=== PATIENT | female | born 1945 | race Caucasian/White ===

== ENCOUNTER 2018-08-01 11:15 | Inpatient (IN) | payer OTHER ==
[2018-07-29 10:52] LABS: PLATELET COUNT 195 10^3/uL (150-400)
[2018-08-01] MEDS ORDERED: BUPIVACAINE 0.5% 30 ML SDV ONE (11:21)
[2018-08-01] MEDS ORDERED: SURGIFLO MATRIX KIT WITH THROMBIN 8 ML TP ONE (11:21)
[2018-08-01] MEDS ORDERED: BACITRACIN 50,000 UNITS/10 ML SYR IRR ONE (11:21)
[2018-08-01] MEDS ORDERED: VANCOMYCIN 1 GM VIAL ONE (11:24)
[2018-08-01] MEDS ORDERED: TRANEXAMIC ACID 1,000 MG in NS 100 ML IV ONE (11:38)
[2018-08-01] MEDS ORDERED: ceFAZolin 2 GM/DEXTROSE 100 ML IV ONE (11:38)
--- NOTE | 2018-08-01 11:38 | PDHPUP ---
History & Physical Update H&P update statement: This history and physical update is based on an assessment of the patient which was completed after admission or registration (within 24 hours), but prior to the surgery/procedure. H&P update: H&P reviewed & patient examined, no change in patient's condition since H&P completed
[2018-08-01] MEDS ORDERED: ALBUTEROL 3 ML DEYVIAL IH PRN (11:42)
[2018-08-01] MEDS ORDERED: ONDANSETRON 4 MG/2 ML VIAL IVP PRN ×2 (11:42→15:16)
[2018-08-01] MEDS ORDERED: oxyCODONE IR 5 MG TAB PO PRN (11:42)
[2018-08-01] MEDS ORDERED: MIDAZOLAM 2 MG/2 ML VIAL IVP ONE (11:42)
[2018-08-01] MEDS ORDERED: DEXAMETHASONE 4 MG/ML VIAL IVP PRN (11:42)
[2018-08-01] MEDS ORDERED: LR 1,000 ML IV ONE (11:42)
[2018-08-01] MEDS ORDERED: fentaNYL 100 MCG/2 ML INJ IVP PRN (11:42)
[2018-08-01] MEDS ORDERED: NALOXONE HCL 0.4 MG/ML INJ IVP PRN (11:42)
[2018-08-01] MEDS ORDERED: PROPOFOL/EMULSION 500 MG/50 ML BOTTLE IV ONE ×4 (12:00→14:22)
[2018-08-01] MEDS ORDERED: REMIFENTANIL HCL 1 MG VIAL ONE ×4 (12:00→13:59)
[2018-08-01] MEDS ORDERED: SUCCINYLCHOLINE CHLORIDE 200 MG/10 ML SYR IVP ONE (12:05)
[2018-08-01] MEDS ORDERED: ONDANSETRON 4 MG/2 ML VIAL ONE (12:34)
[2018-08-01] MEDS ORDERED: DEXAMETHASONE 4 MG/ML VIAL ONE ×2 (12:34)
--- NOTE | 2018-08-01 12:36 | PDANEPAE ---
ANE History of Present Illness L4-5 XLIF, Posterior Fusion ANE Past Medical History - Cardiovascular History Hx Hypertension: Yes Hx Arrhythmias: No Hx Chest Pain: No Hx Coronary Artery / Peripheral Vascular Disease: No Hx CHF / Valvular Disease: Yes Hx Palpitations: No Cardiovascular History Comment: ENRIKE MURMUR. VALVE LEAKAGE VIA ECHO 2013 [facility] [place]. Pt states it seems to come and go, sometimes it cannot be heard". NO CP - Pulmonary History Hx COPD: No Hx Asthma/Reactive Airway Disease: No Hx Recent Upper Respiratory Infection: No Hx Oxygen in Use at Home: No Hx Sleep Apnea: No Sleep Apnea Screening Result - Last Documented: Negative Pulmonary History Comment: SL SOB W STAIRS. CAN ANGEL MET 4 ACT - Neurologic History Hx Cerebrovascular Accident: No Hx Seizures: No Hx Dementia: No Neurologic History Comment: spinal stenosis. sciatic nerve pain to LLE - Endocrine History Hx Diabetes: No - Renal History Hx Renal Disorders: No - Liver History Hx Hepatic Disorders: No - Neurological & Psychiatric Hx Hx Neurological and Psychiatric Disorders: No - Cancer History Hx Cancer: Yes Cancer History Comment: R BREAST CA DX '- TX RADIATION - Congenital Disorder History Hx Congenital Disorders: No - GI History Hx Gastrointestinal Disorders: No - Other Health History Other Health History: laser eye surgery - Chronic Pain History Chronic Pain: No - Surgical History Prior Surgeries: Left total ankle, 06/2014. R ANKLE REPL '04. X 2 CORRECTIVE SURG TO R ANKLE. R LUMPECTOMY W RADIATION ANE Review of Systems Review of Systems: - Exercise capacity METS (RN): 4 METS ANE Patient History - Allergies Allergies/Adverse Reactions: No Known Allergies Allergy (Verified 07/24/18 16:35) - Home Medications Home Medications: Amoxicillin/Clavulanate Pot [Augmentin 875 MG TAB (*)] 875 mg PO BID 07/24/18 [ Last Taken 08/01/18] Lidocaine [Lidoderm] 1 each TP HS 07/24/18 [Last Taken 07/31/18] Lisinopril [Zestril 10 mg (*)] 10 mg PO DAILY 07/24/18 [Last Taken 07/31/18] Meloxicam 15 mg PO DAILY 07/24/18 [Last Taken 07/24/18] - NPO status NPO Since - Liquids (Date): 08/01/18 NPO Since - Liquids (Time): 08:00 NPO Since - Solids (Date): 08/01/18 NPO Since - Solids (Time): 02:00 - Smoking Hx Smoking Status: Never smoked - Family Anes Hx Family Hx Anesthesia Complications: NONE ANE Labs/Vital Signs - Labs Result Diagrams: 07/29/18 Unknown - Vital Signs Blood Pressure: 198/100 Heart Rate: 74 Respiratory Rate: 14 O2 Sat (%): 89 Height: 165.1 cm Weight: 88.451 kg ANE Physical Exam - Airway Neck exam: FROM Mallampati Score: Class 2 Mouth exam: normal dental/mouth exam - Pulmonary Pulmonary: clear to auscultation - Cardiovascular Cardiovascular: regular rate and rhythym - ASA Status ASA Status: III ANE Anesthesia Plan Anesthesia Plan: general endotracheal anesthesia Total IV Anesthesia: Yes
[2018-08-01] MEDS ORDERED: LABETALOL HCL 5 MG/ML 20 ML MDV ONE (12:57)
[2018-08-01] MEDS ORDERED: HYDROmorphONE/DILAUDID 2 MG/ML INJ ONE ×2 (13:07→15:23)
[2018-08-01] MEDS ORDERED: ONDANSETRON DISINTEGRATING 4 MG TAB PO PRN (15:16)
[2018-08-01] MEDS ORDERED: BISACODYL 10 MG SUPP PR PRN (15:16)
[2018-08-01] MEDS ORDERED: POLYETHYLENE GLYCOL 3350 17 GM PKT PO PRN (15:16)
[2018-08-01] MEDS ORDERED: MAGNESIUM HYDROXIDE 30 ML UDCUP PO PRN (15:16)
[2018-08-01] MEDS ORDERED: diphenhydrAMINE 25 MG CAP PO PRN (15:16)
[2018-08-01] MEDS ORDERED: LACTULOSE 20 GM/30 ML UDCUP PO PRN (15:16)
--- NOTE | 2018-08-01 15:16 | POSTOPPROG ---
Post Op Note Date of Operation: 08/01/18 Surgeon: Jr Stanley Sports Medicine Trainer: Isis Diaz PA-C Anesthesiologist: Dr. Hyatt Anesthesia: GET(General Endotracheal) Pre-op Diagnosis: low back pain, lumbar degenerative disc Post-op Diagnosis: low back pain, lumbar degenerative disc Indication: low back pain Procedure: L4-5 XLIF Inf/Abcess present in the surg proc area at time of surgery?: No EBL: 50-100 Complications: none
--- NOTE | 2018-08-01 15:24 | POSTANESTH ---
Post Anesthetic Evaluation Cardiovascular Status: Normal, Stable Respiratory Status: Normal, Stable Level of Consciousness/Mental Status: Can Participate in Eval, Alert and Oriented Pain Control: Adequate, Prn Tx Ordered Nausea/Vomiting Control: Adequate, Prn Tx Ordered Complications Possibly Related to Anesthesia: None Noted
[2018-08-01] MEDS: HYDROmorphONE/DILAUDID 2 MG/ML INJ IVP PRN ×2 (15:25→15:41)
[2018-08-01] MEDS ORDERED: DIAZEPAM 5 MG/ML 1 ML SYR IVP PRN (15:31)
[2018-08-01] MEDS ORDERED: DIAZEPAM 5 MG/ML 1 ML SYR ONE (15:32)
[2018-08-01] MEDS ORDERED: fentaNYL 100 MCG/2 ML INJ ONE (15:32)
--- NOTE | 2018-08-01 15:34 | SOAPPROG ---
SOAP Progress Note Assessment/Plan: Assessment/Plan: 73y/o female s/p L4-5 XLIF - orders as written - TEDs/SCDs, early ambulation - post-op xrays in am - PT/OT - call with issues or concerns 08/01/18 15:32 Subjective: Having moderate low back pain. No leg pain. Objective: Vital Signs Temp Pulse Resp BP Pulse Ox 36.9 C 74 14 198/100 H 89 L 08/01/18 11:46 08/01/18 12:36 08/01/18 12:36 08/01/18 12:36 08/01/18 12:36 Laboratory Results 07/29/18 Unknown NAD, mild distress due to pain EOMi, face symmetric LE 5/5=B in quads, hamstring, dorsiflexion, plantarflexion, EHL sensation intact and symmetric in BLE incision clean, dressed ICD10 Worksheet Patient Problems: Problems Problem Status Onset Primary localized osteoarthritis of ankle Acute
--- NOTE | 2018-08-01 16:42 | SUROPNOTE ---
[facility] Operative Report - Surgery Date: 08/01/18 Pre-operative Diagnoses: Degenerative disc disease and spondylosis L4/5 Degenerative spondylolisthesis L4 Bilateral pars insufficiency fractures Lumbar spinal stenosis Post-operative Diagnosis: Same Procedures: Left L4/5 Minimally invasive extreme lateral interbody fusion (XLIF) L4/5 Anterior column plate and screw fixation L4/5 Minimally Invasive Posterior Lumbar Fusion with Instrumentation L4/5 facet removal and Minimally Invasive Transforaminal Decompression Reduction of bilateral L4 pars insufficiency fractures Structural use of allograft Use of intra-operative fluoroscopy Use of intra-operative neuromonitoring, including EMG and SSEP modalities Use of a surgical microscope Surgeon: Jr Stanley MD Assist: Isis Diaz PA-C Anesthesia: General endotracheal anesthesia Findings: As expected spondylolisthesis, spinal stenosis, facet hypertrophy Estimated Blood Loss: 100mL Drains: Hemovac sewn to skin Specimens: None Complications: None Condition: Transferred to PACU in stable condition Implants: NuVasive XLIF Cage: 10mm x 15deg x 22mm x 50mm Anterior Column Plate: modulus incorporated plate Anterior Screws: 50mm Posterior Pedicle Screws: 45mm x 6.5mm Scott: 40mm Ti Allograft: 5mL allograft used structurally in the disc space and interbody cage Indications: This patient was seen in my office and diagnosed with degenerative spondylolisthesis and spinal stenosis. I have explained all options of treatment for the patient, and the patient has elected to proceed with operative management. I have explained all risks, benefits, and alternatives of the proposed procedure. The risks that we have discussed include , blindness, nerve damage, infection, dural tear, failure of surgery to alleviate pre-operative symptoms, nonunion, and possible need for further operation. I explained separately the risks of allograft, including infection and disease transfer. I specifically discussed the additional risks of XLIF, including but not limited to vascular damage, femoral nerve radiculopathy, or weakness. In addition to the aforementioned procedure, I discussed with the patient that other procedures may be indicated during the course of surgery that would be considered in the patients best interest. The patient expressed understanding of this and agreed to move forward with operative management. Pre-operative: The proposed incision sites were marked in the pre-operative holding area by me. The patient was then taken to the operating room in stable condition. Following smooth induction of general anesthesia, the patient was positioned in a lateral decubitus position on a flat OR table with all down surfaces well- padded. The patient was then prepped and draped in the usual sterile fashion. Pre-operative antibiotics were administered within one hour of the incision. A surgical timeout was performed, and all parties involved in the procedure were in agreement on the correct patient, location, and procedure to be performed. Level localization and spinal pause: After the table was broken to allow for appropriate access to the disk space, x- rays were taken to make sure that the operative disc space was properly marked out. Once the disk space was marked out from a lateral approach, a local anesthetic with epinephrine was injected into~the area and approximately a 4cm incision was then made over the side overlying the disk directly lateral to it. Subdermal fat was then explored and moved aside. The external and internal oblique muscles were then dissected bluntly using finger and Metzenbaum scissors. The retroperitoneal space was then entered using manual palpation. The transverse process and the~disk space of the operative level was palpated. A wire was then placed into the operative disc space and confirmed on both AP and lateral radiographs. Serial dilators were~then placed in position here to allow for an XLIF retractor. The XLIF retractor was then placed over the operative disk space. This was again confirmed~by AP and lateral radiographs and then a nerve detection system was used to ensure that the lumbar plexus was not violated. Placement of XLIF interbody cage, reduction of spondylolisthesis and bilateral pars insufficiency fractures: ~A posterior bridget was then placed into the posterior third of the vertebral body and retracted forward or~anteriorly. An ALL protector was then placed anteriorly over the front of the anterior vertebral bodies. The disk space was then incised and the annulus fibrosis was removed. Serial disk preparation tools including a Mclaughlin curette, box cutters, #5 Kerrison and pituitary rongeur was used to prep the disk space. This was also flushed several times to ensure that the disk space~was empty of any remaining debris. At this time, a trial was then placed and~the appropriately sized cage was selected. The cage was~ then packed with 5 mL of allograft bone and this was gently malleted in place~ and again confirmed by both AP and lateral radiographs. The casing man was then removed. Attention was then turned towards the plate placement. At this~time, an anterior column plate was then placed laterally over the cage itself. Screw holes were then drilled into both the cephalad and caudal vertebrae levels. Appropriately-sized screws were then placed into both vertebrae with just enough purchase for a bicortical bite within the vertebral body. Again, radiographs confirmed both placement of the graft and the screws. The spondylolisthesis and pars insufficiency fractures were noted to be reduced. At this time, all monitoring was noted to be stable. Closure of lateral incision: Attention was then turned towards closure. 2-0 Monocryl sutures were then used to repair the subcutaneous tissues and a 4-0 Monocryl was used to repair the skin. Glue was then used over the top of this and this surgical site was then~ sealed completely. ~ Patient transfer: The patient was then carefully transferred to a Davonte table, and positioned prone with all down surfaces well-padded. The patient was then prepped and draped in the usual sterile fashion. A second surgical timeout was performed, and all parties involved in the procedure were in agreement on the correct patient, location, and procedure to be performed. Pedicle screw placement: All pedicle screws were placed in a percutaneous fashion. Using biplanar fluoroscopy, a Jamshidi needle was gently malleted into place at the appropriate pedicle screw starting position at the lateral border of the facet on the AP view and mid-point of the pedicle on lateral view. The needle was advanced just past the pedicle into the vertebral body. At this point, a neurostimulating probe was attached to the end of the needle and the potentials were noted to be above 20 milliamps. The central trocar was then removed, and a blunt K-wire was passed into the cannulated pedicle. The Jamshidi was then removed completely, with the K-wire anchored in the vertebral body. A tap was then used up to a size that was 1mm below the final screw size based on pre- operative templating. An appropriately-sized screw was placed at each level and confirmed fluoroscopically. Two headless shanks were placed, which would allow for facile visualization of bony landmarks and safe decompression. All screws were then stimulated. Each screw was stimulated and potentials were all above 20 milliAmps. Posterior~approach (cephalad level nerve root to be fused): A pointed dilator was introduced onto the lateral pars of the caudal level to be fused. Serial dilators were used and the XLIF retractor system was then docked. Positioning was confirmed parallel to the disc space to be fused by lateral fluoroscopy. Transforaminal decompression: Using a transforaminal decompression technique and taking care to avoid breach into the previously created pedicle tract, the inferior facet of the cephalad level to be fused, and the superior facet of the caudal level to be fused were removed using a high speed salty and Kerrison rongeurs. Special care was taken to not use the high speed salty in proximity to the underlying nerve root. Using a [place] #4, the nerve was protected cephalad and Kambins triangle was identified and decompressed (bordered by the nerve root cephalad and the thecal sac medially). The facet was removed entirely to allow for complete decompression at the L4/5 level. ~ Scott and set screw placement: At this time, associated tulip heads were placed into the screws with associated reduction towers. Using a percutaneous scott passer, an appropriately- sized scott was then placed into the pedicle screw heads with ample scott extending from either end. To ensure that the rods were appropriately positioned, three checks were performed: the rods were visually inspected, the insertion handle was torqued and both towers were visualized to move, and a lateral radiograph was taken to ensure an appropriate length to the rods. At this point, a lateral radiograph was taken and reduction of the vertebral insufficiency fractures was noted. Of note, there were no changes in the SSEP and EMG monitoring during this maneuver. Set screws were then placed into the cephalad pedicle screws over the rods, and all set screws were tensioned using a torque-limited screwdriver. Closure: The surgical field was then copiously irrigated with sterile saline. Vancomycin powder was then applied to the surgical field. A small drain was placed deep to the fascia and brought out of the skin superior and laterally. The drain was then sewn to skin. #1 vicryl suture were used to repair the fascia in an interrupted fashion. Then 2-0 interrupted sutures were used to repair the dermal layer, and a separate 3-0 monofilament suture was used to repair the subcutaneous layer in a running fashion. All sutures used were absorbable. Topical adhesive was then applied to the skin and allowed to dry. A sterile island dressing was applied over the surgical incision. A surgical count was performed before initiation of closure and following the procedure, and all were correct. I was present for the entire procedure. Surgical microscope use: A surgical microscope was utilized throughout the decompressive portion of this case. This was deemed necessary for safe and accurate surgical decompression of affected nerve roots. Neuromonitoring: SSEP and EMG were used throughout the case from incision until the beginning of closure. There were no significant changes throughout the case, and SSEP signals were at their pre-surgical baseline levels before surgical closure was initiated. medical library assistant: A certified surgical technician was used throughout the case, and deemed necessary for safe neural retraction, hemostasis, and suction. Recovery: The patient was extubated uneventfully in the operating room. The patient was taken to the recovery room in stable condition. Sequential compression devices for VTE prophylaxis were applied to the patients lower extremities, and were ordered to be used while the patient was non-ambulatory. Chemical VTE prophylaxis was considered to be contraindicated for this patient because of the risk of bleeding near the epidural space. Jr Stanley MD
--- NOTE | 2018-08-01 16:55 | PDMN ---
Medical Necessity Medical necessity: [facility] IP only surgery; cpt [id number] Lumbar Fusion (L4/5 XLIF)
[2018-08-01] MEDS: SENNOSIDES/DOCUSATE SODIUM TAB PO SCH (20:11)
[2018-08-01] MEDS: AMOXICILLIN/CLAVULANATE POT 875/125 MG TAB PO SCH (20:11)
[2018-08-01] MEDS: LIDOCAINE 4%/MENTHOL 1% PATCH TD SCH (20:11)
[2018-08-01] MEDS: ceFAZolin 2 GM/DEXTROSE 100 ML IV SCH (20:13)
[2018-08-01] MEDS: oxyCODONE IR 5 MG TAB PO PRN (21:27)
[2018-08-01] MEDS: ACETAMINOPHEN 325 MG TAB PO SCH (21:27)
[2018-08-02] MEDS: METHOCARBAMOL 750 MG TAB PO PRN ×2 (00:46→11:35)
[2018-08-02] MEDS: oxyCODONE IR 5 MG TAB PO PRN ×2 (02:33→20:15)
[2018-08-02] MEDS: ceFAZolin 2 GM/DEXTROSE 100 ML IV SCH (03:54)
[2018-08-02] MEDS: ACETAMINOPHEN 325 MG TAB PO SCH ×2 (05:51→14:06)
[2018-08-02] MEDS: LISINOPRIL 10 MG TAB PO SCH (08:34)
--- NOTE | 2018-08-02 09:17 | GDS ---
The patient underwent an uneventful left L4-5 XLIF and right L4-5 MIS PSF on 08/01/2018. There were no complications. Following the operation, she did well. Her pain was well controlled and she noted relief of her pre-surgical stenosis symptoms. She had no drains. The Thurman was discontinued immedi ately after surgery. She progressed well with physical therapy and her pain was well controlled on a n oral regimen. The patient is not to bend, lift, or twist about the spine and is to wear the brace any time she is u p and around walking. She can remove the dressings the day after leaving the hospital and is allowed to shower without the dressings. She will see me in the office in 2 weeks time for followup. She h as my cell phone if any further questions arise, and she has a pre-surgical packet which answers any remaining questions. /[id number]/MODL
--- NOTE | 2018-08-02 09:17 | GPROG ---
I saw and evaluated the patient on my morning rounds today. Overall, she offers no unusual complaints. She states that the leg pain she was having for some time is completely gone. She has had a couple of narcotic pain medications overnight, but offers no unusual complaints. Thurman catheter has been removed and the patient since has urinated. PHYSICAL EXAM: Her dressings are clean, dry, and intact. There is no drain. She has no sensory, motor or vascular deficits. IMPRESSION: Postoperative day 1 status post left L4/5 XLIF, right L4/L5 MIS posterior spinal fusion. From my perspective, she is going to go home whenever she is safe with Physical Therapy. Her pain is controlled on an oral regimen. /[id number]/MODL MTDD
[2018-08-02] MEDS: AMOXICILLIN/CLAVULANATE POT 875/125 MG TAB PO SCH ×2 (10:10→20:13)
[2018-08-02] MEDS: PATCH REMOVAL 1 EA PATCH TD SCH (10:11)
[2018-08-02] MEDS: SENNOSIDES/DOCUSATE SODIUM TAB PO SCH ×2 (10:11→20:13)
--- NOTE | 2018-08-02 11:15 | ASMTLACE ---
LACE Length of stay for Answers: 2 days current admission Acuity / Level of Answers: Yes Care: Did the patient have an inpatient admission? Comorbidities - select Answers: Congestive heart failure all that apply Other Notes: HTN # of Emergency department Answers: 0 visits in the last 6 months Score: 8 Date Signed: 08/02/2018 11:14 AM Electronically Signed By:KUSHAL Flores
--- NOTE | 2018-08-02 11:16 | ASMTCMCOM ---
CM Note CM Note Notes: Pt had planned surgery for stenosis. PT rec home. Pt resides with spouse. Anticipate pt will d/c when medically stable with family support, no CM d/c needs identified. CM available for changes/needs. Date Signed: 08/02/2018 11:15 AM Electronically Signed By:KUSHAL Flores
[2018-08-02] MEDS: LIDOCAINE 4%/MENTHOL 1% PATCH TD SCH (20:16)
[2018-08-03] MEDS: ACETAMINOPHEN 325 MG TAB PO SCH ×2 (00:30→05:35)
[2018-08-03] MEDS: oxyCODONE IR 5 MG TAB PO PRN ×2 (05:35→10:28)
[2018-08-03] MEDS: SENNOSIDES/DOCUSATE SODIUM TAB PO SCH (08:09)
[2018-08-03] MEDS: AMOXICILLIN/CLAVULANATE POT 875/125 MG TAB PO SCH (08:09)
[2018-08-03] MEDS: LISINOPRIL 10 MG TAB PO SCH (08:10)
[2018-08-03] MEDS: PATCH REMOVAL 1 EA PATCH TD SCH (08:12)
[2018-08-03 08:13] VITALS: BP 158/92
--- NOTE | 2018-08-03 10:13 | GPROG ---
I have seen and evaluated Jo-Ann this morning. Overall, she is doing quite well. She ambulated 9 lap s around the nurses' station. Her dressings are clean, dry, intact. She is neurologically intact an d has no unusual complaint. In fact, she is markedly improved from before the operation. We will di scharge her home today and follow up with me in 2 weeks. /[id number]/MODL
--- NOTE | 2018-08-03 10:32 | ASDISCHSUM ---
Discharge Information Plan Status:Home with No Needs Medically Cleared to Leave:08/03/2018 Discharge Date:08/03/2018 CM D/C Disposition:Home, Routine, Self-Care ADT D/C Disposition: Projected Discharge Date:08/03/2018 Transportation at D/C:Family Discharge Delay Reason: Follow-Up Date:08/03/2018 Discharge Slot: Final Diagnosis: Placement Information Patient Contact Information Contact Name:MARIA GUADALUPE Relationship: Address:[address] [place] [address] Work Phone: City:[facility] Phone: State/Zip Code:[place] [address] Email: Financial Information Financial Class:Medicare Primary Plan Desc:MEDICARE INPATIENT Primary Plan Number:[id number] Secondary Plan Desc:[facility] Secondary Plan Number:[id number] Assessment Information LACE LACE Length of stay for Answers: 2 days current admission Acuity / Level of Answers: Yes Care: Did the patient have an inpatient admission? Comorbidities - select Answers: Congestive heart failure all that apply Other Notes: HTN # of Emergency department Answers: 0 visits in the last 6 months Score: 8 Date Signed: 08/02/2018 11:14 AM Electronically Signed By:KUSHAL Flores [facility] CM Progress Note CM Note CM Note Notes: Pt had planned surgery for stenosis. PT rec home. Pt resides with spouse. Anticipate pt will d/c when medically stable with family support, no CM d/c needs identified. CM available for changes/needs. Date Signed: 08/02/2018 11:15 AM Electronically Signed By:KUSHAL Flores Intervention Information
== END 2018-08-03 12:22 | disposition home or self-care (01) | DRG 460 ==
LOC: F3N 11:15
PROVIDERS: ADMIT Orthopaedic Surgery Orthopaedic Surgery of the Spine; ATTEND Orthopaedic Surgery Orthopaedic Surgery of the Spine
PROC: 01NB0ZZ Release Lumbar Nerve, Open Approach (ICD-10-PCS; principal; 2018-08-01 12:15)
PROC: 4A1004G Monitoring of Central Nervous Electrical Activity, Intraoperative, Open Approach (ICD-10-PCS; principal; 2018-08-01 12:15)
PROC: 0SG00A0 Fusion of Lumbar Vertebral Joint with Interbody Fusion Device, Anterior Approach, Anterior Column, Open Approach (ICD-10-PCS; principal; 2018-08-01 12:15)
PROC: 00NY0ZZ Release Lumbar Spinal Cord, Open Approach (ICD-10-PCS; principal; 2018-08-01 12:15)
DX: M51.36 Other intervertebral disc degeneration, lumbar region (principal); M43.16 Spondylolisthesis, lumbar region; M47.896 Other spondylosis, lumbar region; M48.061 Spinal stenosis, lumbar region without neurogenic claudication; I10 Essential (primary) hypertension; Z23 Encounter for immunization; Z85.3 Personal history of malignant neoplasm of breast
CPT/HCPCS: 97116-GP; 97161-GP; 97165-GO; 97535-GO; C1713; C1762; G0008; G8978-GP-CI; G8979-GP-CI; G8980-GP-CI; G8987-GO-CI; G8988-GO-CI; G8989-GO-CI; J0330; J0690; J1100; J1170; J2250; J2405; J2704; J3010; J3360; J3370